=== PATIENT | female | born 1985 | race Two or more races ===

== ENCOUNTER 2022-03-09 12:30 | Emergency (ER) | payer MEDICAID, OTHER ==
[~2022-03-09] VITALS: Ht 160 cm; Wt 110.2 kg
[2022-03-09] MEDS ORDERED: DONNATAL 5ml ORAL Elix (BELLADONNA ALK-PHENOBARB) PO ONE (13:15)
[2022-03-09] MEDS ORDERED: ALUM & MAG HYDROX-SIMETH LIQ(MAALOX) 30 ML PO ONE (13:15)
[2022-03-09 13:55] LABS: Basophils # (auto) 0.1 10 ^3/uL (0-0.2); Basophils % (auto) 1.1 % (0.0-2.0); Eosinophils # (auto) 0.3 10 ^3/uL (0-0.8); Eosinophils % (auto) 3.5 % (0.0-7.0); Hematocrit 38.5 % (36.0-46.0); Hemoglobin 13.1 g/dL (12.2-16.2); Lymphocytes % (auto) 32.9 % (10.0-50.0); Mean Corpuscular Hemoglobin 28.3 pg (28.0-32.0); Mean Corpuscular Hgb Conc. 34.1 g/dL (32.0-36.0); Mean Corpuscular Volume 83.1 fL (80.0-100.0); Monocytes # (auto) 0.6 10 ^3/uL (0-1.3); Monocytes % (auto) 6.4 % (0.0-12.0); Neutrophils # (auto) 5.1 10 ^3/uL (1.6-8.6); Neutrophils % (auto) 56.1 % (37.0-80.0); Red Blood Cells 4.64 10^6/uL (4.0-5.20); Red Cell Distribution Width 13.3 % (11.8-14.3); White Blood Cell 9.1 10^3/uL (4.4-10.8)
[2022-03-09 14:19] LABS: Urine Bacteria FEW /hpf (None Seen); Urine Blood Negative /uL (Negative); Urine Hyaline Cast FEW /lpf (0 - 2); Urine Specific Gravity 1.019 (1.001-1.035); Urine WBC 1 /hpf (0 - 5)
[2022-03-09 14:28] LABS: Albumin 3.6 g/dL (3.4-5.0); Calcium 8.9 mg/dL (8.5-10.1); Potassium 3.4 mmol/L (3.5-5.1)
[2022-03-09 14:33] LABS: BUN/Creatinine Ratio 10.4; Bilirubin, Total 0.3 mg/dL (0.2-1.0); Total Protein 8.1 g/dL (6.4-8.2)
[2022-03-09 15:48] VITALS: BP 155/99
== END 2022-03-09 16:01 | disposition home or self-care (01) ==
LOC: ER 12:30
DX: K80.80 Other cholelithiasis without obstruction (principal)
CPT/HCPCS: 36415; 76705; 80053; 81001; 83605; 83690; 84702; 85025

== ENCOUNTER 2022-05-14 18:25 | Emergency (ER) | payer MEDICAID, OTHER ==
[~2022-05-14] VITALS: Ht 157.5 cm; Wt 109.1 kg
[2022-05-14 19:20] VITALS: BP 154/105
[2022-05-14] MEDS ORDERED: ONDANSETRON ODT 4 MG TAB PO ONE (21:45)
[2022-05-14] MEDS ORDERED: OXYCODONE W/ ACETAMINOPHEN 5/325MG TABLET PO ONE (21:45)
[2022-05-16] MEDS ORDERED: ACET-1158 PO (16:03)
[2022-05-16] MEDS ORDERED: CYCL-837 PO (16:03)
== END 2022-05-15 03:19 | disposition left against medical advice (07) ==
LOC: ER 18:25
DX: M54.9 Dorsalgia, unspecified (principal); M54.2 Cervicalgia; V43.62XA Car passenger injured in collision with other type car in traffic accident, initial encounter; Y93.89 Activity, other specified; Y92.410 Unspecified street and highway as the place of occurrence of the external cause; Y99.8 Other external cause status
CPT/HCPCS: 70450; 72125; 81025; 99284; Q0162

== ENCOUNTER 2022-05-16 12:04 | Emergency (ER) | payer MEDICAID, OTHER ==
[~2022-05-16] VITALS: Ht 152.4 cm; Wt 110.9 kg
[2022-05-16 15:39] VITALS: BP 145/79
[2022-05-16] MEDS ORDERED: ACET-1158 PO (16:03)
[2022-05-16] MEDS ORDERED: CYCL-837 PO (16:03)
== END 2022-05-16 16:08 | disposition home or self-care (01) ==
LOC: ER 12:04
DX: S16.1XXA Strain of muscle, fascia and tendon at neck level, initial encounter (principal); Z79.899 Other long term (current) drug therapy; V43.62XA Car passenger injured in collision with other type car in traffic accident, initial encounter; Y93.89 Activity, other specified; Y92.410 Unspecified street and highway as the place of occurrence of the external cause; Y99.8 Other external cause status
CPT/HCPCS: 70490

== ENCOUNTER 2024-09-26 23:59 | Emergency (ER) | payer MEDICAID ==
[~2024-09-26] VITALS: Ht 160 cm; Wt 100.0 kg
[~2024-09-26 23:59] MED LIST: ACET500T58 PO; CYCL-837 PO
[2024-09-27] MEDS: LIDOCAINE W/ EPINEPHRINE 1% 20ML VIAL ID ONE (00:30)
--- NOTE | 2024-09-27 00:33 | ED.PDOC ---
History of Present Illness HPI Comments A 39 year old female brought in by EMS presents to the ED with a chief complaint of wound check onset yesterday. Patient states she saw EENT specialist yesterday at [place] and had her g-tube removed. Patient noticed site was bleeding when she got home yesterday but did not think it was unusual. Patient noticed the bleeding continued today and was changing the gauze every 30-45 minutes. Patient is currently taking Aspirin. Upon EMS arrival BP was 170/110. Patient has a past medical history of thyroid cancer. No other symptoms or modifying factors present at this time. Chief Complaint: Wound Check Time Seen by MD: 00:20 Primary Care Provider: PAM Coulter Notes: Medications, Allergies Allergies: Coded Allergies: NO KNOWN ALLERGIES (Unverified , 03/09/22) Home Meds Active Scripts Levothyroxine Sodium (SYNTHROID TABLET) 100 Mcg Tb, 1 TAB PO DAILY for 30 Days, #30 TAB 5 Refills Prov:GREY THOMAS MD 09/27/24 Cyclobenzaprine Hcl (Cyclobenzaprine Hcl) 5 Mg Tab, 1 TAB PO QPM PRN, #14 TAB 0 Refills Prov:OPAL QUINTANA 05/16/22 Acetaminophen (Acetaminophen) 500 Mg Tab, 500 MG PO QIDP, #30 TAB 0 Refills Prov:OPAL QUINTANA 05/16/22 Information Source: Patient, Emergency Med Personnel Mode of Arrival: EMS Severity: Moderate Timing: Hours Duration: Since onset Prehospital treatment: None Past Medical History PAST MEDICAL HISTORY: Cancer Surgical History: Denies all surgeries NEWSPAPER DELIVERY DRIVER History: No Pertinent NEWSPAPER DELIVERY DRIVER History Family History Family History: Unknown Social History Smoker: Non-Smoker Alcohol: Denies ETOH Use Drugs: Denies Drug Use Lives In: Home Constitutional: denies: chills, diaphoresis, fatigue, fever, malaise, sweats, weakness, others EENTM: denies: blurred vision, double vision, ear bleeding, ear discharge, ear drainage, ear pain, ear ringing, eye pain, eye redness, hearing loss, mouth pain, mouth swelling, nasal discharge, nose bleeding, nose congestion, nose pain, photophobia, tearing, throat pain, throat swelling, voice changes, others Respiratory: denies: cough, hemoptysis, orthopnea, SOB at rest, shortness of breath, SOB with excertion, stridor, wheezing, others Cardiovascular: denies: chest pain, dizzy spells, diaphoresis, Dyspnea on exertion, edema, irregular heart beat, left arm pain, lightheadedness, palpitations, PND, syncope, others Gastrointestinal: denies: abdomen distended, abdominal pain, blood streaked bowels, constipated, diarrhea, dysphagia, difficulty swallowing, hematemesis, melena, nausea, poor appetite, poor fluid intake, rectal bleeding, rectal pain, vomiting, others Genitourinary: denies: abnormal vagina bleeding, burning, dyspareunia, dysuria, flank pain, frequency, hematuria, incontinence, pain, , vagina discharge, urgency, others Neurological: denies: dizziness, fainting, headache, left sided numbness, left sided weakness, numbness, paresthesia, pre-existing deficit, right sided numbness, right sided weakness, seizure, speech problems, tingling, tremors, we akness, others Musculoskeletal: denies: back pain, gout, joint pain, joint swelling, muscle pain, muscle stiffness, neck pain, others Integumetry: denies: bruises, change in color, change in hair/nails, dryness, laceration, lesions, lumps, rash, wounds, others Allergic/Immunocompromised: denies: Difficulty Healing, Frequent Infections, Hives, Itching, others Hematologic/Lymphatic: denies: anemia, blood clots, easy bleeding, easy bruising, swollen glands, others Endocrine: denies: excessive hunger, excessive sweating, excessive thirst, excessive urination, flushing, intolerance to cold, intolerance to heat, unexplained weight gain, unexplained weight loss, others Psychiatric: denies: anxiety, bipolar disorder, depression, hopeless, panic disorder, schizophrenia, sleepless, suicidal, others All Other Systems: Reviewed and Negative Physical Exam General Appearance: No Apparent Distress, Normal HEENT: Normal ENT Inspection, Pharynx Normal, TMs Normal Neck: Full Range of Motion, Non-Tender, Normal, Normal Inspection Respiratory: Chest Non-Tender, Lungs Clear, No Accessory Muscle Use, No Respiratory Distress, Normal Breath Sounds Cardiovascular: No Edema, No JVD, No Murmur, No Gallop, Normal Peripheral Pulses, Regular Rate/Rhythm Breast Exam: Deferred Gastrointestinal: No Organomegaly, Non Tender, No Pulsatile Mass, Normal Bowel Sounds, Soft Genitalia: Deferred Pelvic: Deferred Rectal: Deferred Extremities: No calf tenderness, Normal capillary refill, Normal inspection, Normal range of motion, Non-tender, No pedal edema Musculoskeletal : Apperance: Normal Neurologic: Alert, oyster unloader II-XII nml as Tested, No Motor Deficits, Normal Affect, Normal Mood, No Sensory Deficits Cerebellar Function: Normal Reflexes: Normal Skin: Dry, Normal Color, Warm Lymphatic: No Adenopathy Was a procedure done? Was a procedure done?: Yes Sedation Sedation?: No Laceration Repair : Location LUQ abdomen Length 1 cm Anesthetic: Lidocaine, With epi Laceration Repair Wound Comple: epidermis/dermis repair Laceration Repair: Number of sutures, Skin, Chromic Informed consent obtained: Yes Risks, benefits, and alternati: Yes Differential Dx Considerations may include: DDX: symptomatic anemia, coagulopathy, intra abdominal hematoma, vascular injury, hypovolemia and others X-Ray, Labs, Meds, VS Vital Signs Date Time Temp Pulse Resp B/P (MAP) Pulse Ox O2 Delivery O2 Flow Rate FiO2 09/27/24 03:30 98.0 75 12 137/89 (105) 99 98.0 09/27/24 01:14 82 12 98 Room Air* 0 21 09/27/24 01:14 98.8 82 12 147/92 (110) 98 98.8 09/27/24 00:12 98.0 80 24 170/110 (130) 96 Lab Test 09/27/24 00:30 Range/Units White Blood Count 8.9 4.4-10.8 10^3/uL Red Blood Count 4.27 4.0-5.20 10^6/uL Hemoglobin 12.2 12.2-16.2 g/dL Hematocrit 37.1 36.0-46.0 % Mean Corpuscular Volume 87.0 80.0-100.0 fL Mean Corpuscular Hemoglobin 28.5 28.0-32.0 pg Mean Corpuscular Hemoglobin Concent 32.8 32.0-36.0 g/dL Red Cell Distribution Width 14.1 11.8-14.3 % Platelet Count 222 140-450 10^3/uL Mean Platelet Volume 10.3 6.9-10.8 fL Neutrophils (%) (Auto) 64.4 37.0-80.0 % Lymphocytes (%) (Auto) 28.0 10.0-50.0 % Monocytes (%) (Auto) 4.5 0.0-12.0 % Eosinophils (%) (Auto) 2.4 0.0-7.0 % Basophils (%) (Auto) 0.7 0.0-2.0 % Neutrophils # (Auto) 5.7 1.6-8.6 10 ^3/uL Lymphocytes # (Auto) 2.5 0.4-5.4 10 ^3/uL Monocytes # (Auto) 0.4 0-1.3 10 ^3/uL Eosinophils # (Auto) 0.2 0-0.8 10 ^3/uL Basophils # (Auto) 0.1 0-0.2 10 ^3/uL Nucleated Red Blood Cells 0.0 % Prothrombin Time 11.5 9.3-11.8 sec Prothrombin Time INR 1.09 0.9-1.15 Activated Partial Thromboplast Time 30.1 24.5-34.5 SEC Sodium Level 141 136-145 mmol/L Potassium Level 3.3 L 3.5-5.1 mmol/L Chloride Level 107 98-107 mmol/L Carbon Dioxide Level 25 20-31 mmol/L Anion Gap 9 5-15 Blood Urea Nitrogen 6 L 9-23 mg/dL Creatinine 0.59 0.550-1.02 mg/dL Glomerular Filtration Rate Calc 118 >90 mL/min BUN/Creatinine Ratio 10.2 10.0-20.0 Serum Glucose 100 74-106 mg/dL Calcium Level 9.6 8.7-10.4 mg/dL Thyroid Stimulating Hormone (TSH) 49.40 H 0.55-4.78 uIU/mL Free Thyroxine (T4) Calculated 0.15 L 0.89-1.76 ng/dL Current Medications Medications (Trade) Dose Ordered Sig/Elian Route Start Time Stop Time Status Last Admin Lidocaine/ Epinephrine 10 ml ONCE ONCE ID 09/27/24 00:30 09/27/24 00:31 DC 09/27/24 00:30 Levothyroxine Sodium (Synthroid Tablet) 75 mcg ONCE ONCE PO 09/27/24 02:30 09/27/24 02:31 DC 09/27/24 02:50 Acetaminophen/ Hydrocodone Bitart ([place] 5/325MG Tab) 1 tab ONCE ONCE PO 09/27/24 02:45 09/27/24 02:46 DC 09/27/24 02:50 Time of 1ST Reevaluation: 00:50 Reevaluation 1ST: Unchanged Patient Education/Counseling: Diagnosis, Treatment, Prognosis Family Education/Counseling: No Family Present Additional Information I reviewed the following notes from patient's past medical encounters: The following tests were ordered, and results were reviewed by me: CBC, PTPTT, BMP, Thyroid stimulating hormone Additional Information was gathered from interviewing the following independent historians: EMS I reviewed and agreed with the following test results read by other providers: radiologist I discussed treatment and results with medical personnel and: patient Departure 1 Departure Time of Disposition: 01:00 Impression: Primary Impression: Post-op bleeding Additional Impression: Hypothyroid Disposition: 01 HOME / SELF CARE / HOMELESS Condition: Stable e-Prescriptions Levothyroxine Sodium (SYNTHROID TABLET) 100 Mcg Tb 1 TAB PO DAILY for 30 Days, #30 TAB 5 Refills Prov: GREY THOMAS MD 09/27/24 Discharged With: Self Critical Care Note Critical Care Time?: No Stability Stability form required: No I personally scribed for GREY THOMAS MD ([email or web address]) on 09/27/24 at 00:33. Electronically submitted by Ema Rosenberg ([email or web address]). I personally scribed for GREY THOMAS MD ([email or web address]) on 09/27/24 at 00:47. Electronically submitted by Ema Rosenberg ([email or web address]). GREY THOMAS MD Sep 27, 2024 00:33
[2024-09-27 01:04] LABS: Basophils # (auto) 0.1 10 ^3/uL (0-0.2); Basophils % (auto) 0.7 % (0.0-2.0); Eosinophils # (auto) 0.2 10 ^3/uL (0-0.8); Eosinophils % (auto) 2.4 % (0.0-7.0); Hematocrit 37.1 % (36.0-46.0); Hemoglobin 12.2 g/dL (12.2-16.2); Lymphocytes # (auto) 2.5 10 ^3/uL (0.4-5.4); Mean Corpuscular Hemoglobin 28.5 pg (28.0-32.0); Mean Corpuscular Hgb Conc. 32.8 g/dL (32.0-36.0); Monocytes # (auto) 0.4 10 ^3/uL (0-1.3); Monocytes % (auto) 4.5 % (0.0-12.0); Neutrophils # (auto) 5.7 10 ^3/uL (1.6-8.6); Neutrophils % (auto) 64.4 % (37.0-80.0); Platelet Count (auto) 222 10^3/uL (140-450); Red Blood Cells 4.27 10^6/uL (4.0-5.20); Red Cell Distribution Width 14.1 % (11.8-14.3); White Blood Cell 8.9 10^3/uL (4.4-10.8)
[2024-09-27 01:12] LABS: Chloride 107 mmol/L (98-107); Sodium 141 mmol/L (136-145)
[2024-09-27 01:13] LABS: Anion Gap 9 (5-15); Carbon Dioxide 25 mmol/L (20-31)
[2024-09-27 01:14] VITALS: PULSE 82; RESP 12; O2SAT 98
[2024-09-27 01:14] LABS: Calcium 9.6 mg/dL (8.7-10.4)
[2024-09-27 01:17] LABS: INR 1.09 (0.9-1.15); Partial Thromboplastin Time 30.1 SEC (24.5-34.5); Prothrombin Time 11.5 sec (9.3-11.8)
[2024-09-27 01:18] LABS: Glucose 100 mg/dL (74-106)
[2024-09-27 01:19] LABS: Potassium 3.3 mmol/L (3.5-5.1)
[2024-09-27 02:07] LABS: BUN/Creatinine Ratio 10.2 (10.0-20.0)
[2024-09-27 02:09] LABS: Blood Urea Nitrogen 6 mg/dL (9-23)
[2024-09-27] MEDS ORDERED: LEVO-849 PO (02:47)
[2024-09-27] MEDS: LEVOTHYROXINE SODIUM 25 MCG TAB PO ONE (02:50)
[2024-09-27] MEDS: HYDROcodone-ACET 5/325MG TAB PO ONE (02:50)
[2024-09-27 03:30] VITALS: BP 137/89; PULSE 75; RESP 12; TEMP 98; O2SAT 99
== END 2024-09-27 03:43 | disposition home or self-care (01) ==
LOC: EDBD 23:59 → EDSEX 23:59 → ER 09-27 00:01
DX: K91.841 Postprocedural hemorrhage of a digestive system organ or structure following other procedure (principal); E03.9 Hypothyroidism, unspecified; Z85.850 Personal history of malignant neoplasm of thyroid; Z79.82 Long term (current) use of aspirin; Z79.899 Other long term (current) drug therapy; Y92.89 Other specified places as the place of occurrence of the external cause
CPT/HCPCS: 12001; 36415; 80048; 84439; 84443; 85025; 85610; 85730

== ENCOUNTER 2025-02-22 13:39 | Emergency (ER) | payer MEDICAID ==
[~2025-02-22] VITALS: Ht 160 cm; Wt 97.0 kg
[~2025-02-22 13:39] MED LIST changes: +LEVO-849 PO
--- NOTE | 2025-02-22 14:06 | ED.PDOC ---
History of Present Illness HPI Comments 39 year old female presents to the ED with a chief complaint of throat swelling onset today (02/22/25). Patient states she was eating [employer] when she noticed throat began swelling. Patient states she experienced similar symptoms before while eating tostada, took Benadryl and had slight relief of symptoms. PMHx thyroid cancer. Denies rash, shortness of breath, fever, chills, dizziness, headache, chest pain. No other symptoms or modifying factors present at this time. Time Seen by MD: 14:00 Primary Care Provider: PAM Coulter Notes: Medications, Allergies Allergies: Coded Allergies: NO KNOWN ALLERGIES (Unverified , 03/09/22) Home Meds Active Scripts Levothyroxine Sodium (SYNTHROID TABLET) 100 Mcg Tb, 1 TAB PO DAILY for 30 Days, #30 TAB 5 Refills Prov:GREY THOMAS MD 09/27/24 Cyclobenzaprine Hcl (Cyclobenzaprine Hcl) 5 Mg Tab, 1 TAB PO QPM PRN, #14 TAB 0 Refills Prov:OPAL QUINTANA 05/16/22 Acetaminophen (Acetaminophen) 500 Mg Tab, 500 MG PO QIDP, #30 TAB 0 Refills Prov:OPAL QUINTANA 05/16/22 Information Source: Patient Mode of Arrival: Ambulatory Severity: Moderate Timing: Hours Duration: Since onset Prehospital treatment: None Past Medical History PAST MEDICAL HISTORY: Cancer Surgical History (Other): thyroidectomy MANAGER PARKING History: No Pertinent MANAGER PARKING History Family History Family History: Unknown Social History Smoker: Non-Smoker Alcohol: Denies ETOH Use Drugs: Denies Drug Use Lives In: Home Constitutional: denies: chills, diaphoresis, fatigue, fever, malaise, sweats, weakness, others EENTM: reports: throat swelling; denies: blurred vision, double vision, ear bleeding, ear discharge, ear drainage, ear pain, ear ringing, eye pain, eye redness, hearing loss, mouth pain, mouth swelling, nasal discharge, nose bleeding, nose congestion, nose pain, photophobia, tearing, throat pain, voice changes, others Respiratory: denies: cough, hemoptysis, orthopnea, SOB at rest, shortness of breath, SOB with excertion, stridor, wheezing, others Cardiovascular: denies: chest pain, dizzy spells, diaphoresis, Dyspnea on exertion, edema, irregular heart beat, left arm pain, lightheadedness, palpita tions, PND, syncope, others Gastrointestinal: denies: abdomen distended, abdominal pain, blood streaked alyssia wels, constipated, diarrhea, dysphagia, difficulty swallowing, hematemesis, melena, nausea, poor appetite, poor fluid intake, rectal bleeding, rectal pain, vomiting, others Genitourinary: denies: abnormal vagina bleeding, burning, dyspareunia, dysuria, flank pain, frequency, hematuria, incontinence, pain, , vagina discharge, urgency, others Neurological: denies: dizziness, fainting, headache, left sided numbness, left sided weakness, numbness, paresthesia, pre-existing deficit, right sided numbness, right sided weakness, seizure, speech problems, tingling, tremors, weakness, others Musculoskeletal: denies: back pain, gout, joint pain, joint swelling, muscle pain, muscle stiffness, neck pain, others Integumetry: denies: bruises, change in color, change in hair/nails, dryness, laceration, lesions, lumps, rash, wounds, others Allergic/Immunocompromised: denies: Difficulty Healing, Frequent Infections, Hives, Itching, others Hematologic/Lymphatic: denies: anemia, blood clots, easy bleeding, easy bruis ing, swollen glands, others Endocrine: denies: excessive hunger, excessive sweating, excessive thirst, exc essive urination, flushing, intolerance to cold, intolerance to heat, unexplained weight gain, unexplained weight loss, others Psychiatric: denies: anxiety, bipolar disorder, depression, hopeless, panic disorder, schizophrenia, sleepless, suicidal, others All Other Systems: Reviewed and Negative Physical Exam General Appearance: No Apparent Distress, Normal HEENT: Normal ENT Inspection, Pharynx Normal, TMs Normal Neck: Full Range of Motion, Non-Tender, Normal, Normal Inspection Respiratory: Chest Non-Tender, Lungs Clear, No Accessory Muscle Use, No Respiratory Distress, Normal Breath Sounds Cardiovascular: No Edema, No JVD, No Murmur, No Gallop, Normal Peripheral Pulses, Regular Rate/Rhythm Breast Exam: Deferred Gastrointestinal: No Organomegaly, Non Tender, No Pulsatile Mass, Normal Bowel Sounds, Soft Genitalia: Deferred Pelvic: Deferred Rectal: Deferred Extremities: No calf tenderness, Normal capillary refill, Normal inspection, Normal range of motion, Non-tender, No pedal edema Musculoskeletal : Apperance: Normal Neurologic: Alert, control analyst II-XII nml as Tested, No Motor Deficits, Normal Affect, Normal Mood, No Sensory Deficits Cerebellar Function: Normal Reflexes: Normal Skin: Dry, Normal Color, Warm Lymphatic: No Adenopathy Was a procedure done? Was a procedure done?: No Differential Dx Considerations may include: Allergic reaction X-Ray, Labs, Meds, VS Vital Signs Date Time Temp Pulse Resp B/P (MAP) Pulse Ox O2 Delivery O2 Flow Rate FiO2 02/22/25 14:04 98.2 70 18 190/121 (144) 99 98.2 Current Medications Medications (Trade) Dose Ordered Sig/Elian Route Start Time Stop Time Status Last Admin Methylprednisolone Sodium Succinate (Solu Medrol) 125 mg ONCE ONCE IV 02/22/25 14:00 02/22/25 14:01 DC 02/22/25 14:09 Famotidine (Pepcid Injection) 20 mg ONCE ONCE IV 02/22/25 14:00 02/22/25 14:01 DC 02/22/25 14:08 Diphenhydramine HCl (Benadryl Injection) 50 mg ONCE ONCE IV 02/22/25 14:00 02/22/25 14:01 DC 02/22/25 14:09 Sodium Chloride 1,000 ml @ 1,000 mls/hr Q1H ONCE IV 02/22/25 14:00 02/22/25 14:59 DC 02/22/25 14:10 Time of 1ST Reevaluation: 14:30 Reevaluation 1ST: Unchanged Patient Education/Counseling: Diagnosis, Treatment, Prognosis Family Education/Counseling: No Family Present Departure 1 Departure Time of Disposition: 16:55 (Patient's allergic reaction. Patient is feeling significantly better. We will discharge patient home with medications and outpatient follow up) Impression: Primary Impression: Acute allergic reaction Qualified Codes: T78.40XA - Allergy, unspecified, initial encounter Disposition: HOME / SELF CARE / HOMELESS Condition: Stable Additional Instructions: You had an allergic reaction. You received medications in the ER. You were prescribed steroids and an epinephrine pain. Please use as directed. You should follow up with your regular doctor within one week to ensure you are doing better. You may benefit from an appointment with an Sulphate Tester. If your symptoms worsen, or you have any other concerns then please return to the ER. e-Prescriptions Epinephrine (Anaphylaxis) (Auvi-Q) 0.1 Mg/0.1 Ml Inj 0.1 MG IJ O PRN for 1 Day, #1 INJ Prov: RADHA MOULTON MD 02/22/25 Prednisone (Prednisone) 20 Mg Tab 40 MG PO DAILY for 5 Days, #10 MG Prov: RADHA MOULTON MD 02/22/25 Discharged With: Self Critical Care Note Critical Care Time?: No Stability Stability form required: No I personally scribed for RADHA MOULTON MD ([email or web address]) on 02/22/25 at 14:06. Electronically submitted by Ema Rosenberg ([email or web address]). I personally scribed for RADHA MOULTON MD ([email or web address]) on 02/22/25 at 14:06. Electronically submitted by Ema Rosenberg ([email or web address]). RADHA MOULTON MD February 22, 2025 14:06
[2025-02-22] MEDS: FAMOTIDINE (10MG/ML) 2ML VL IV ONE (14:08)
[2025-02-22] MEDS: diphenhdrAMINE HCL 50 MG/1 ML VL IV ONE (14:09)
[2025-02-22] MEDS: methylPREDNISolone SOD SUCC 125 MG/2 ML VL IV ONE (14:09)
[2025-02-22] MEDS: SODIUM CHLORIDE 0.9% 1,000 ML IV ONE (14:10)
[2025-02-22] MEDS: diphenhdrAMINE HCL 50 MG/1 ML VL ONE (14:38)
[2025-02-22] MEDS: methylPREDNISolone SOD SUCC 125 MG/2 ML VL ONE (14:38)
[2025-02-22] MEDS ORDERED: PRED20TA2 PO (16:57)
[2025-02-22] MEDS ORDERED: EPIN0.1I11 IJ (16:57)
[2025-02-22 17:13] VITALS: BP 141/97; PULSE 81; RESP 17; TEMP 98.3; O2SAT 97
== END 2025-02-22 17:16 | disposition home or self-care (01) ==
LOC: ER 13:43
DX: T78.40XA Allergy, unspecified, initial encounter (principal); Z90.89 Acquired absence of other organs; Z79.899 Other long term (current) drug therapy
CPT/HCPCS: 96361; 96374; 96375; 99284; A4315; J1200; J2919; J3490; J7030